=== PATIENT | male | born 1990 | race African-American/Black ===

== ENCOUNTER 2016-07-30 11:38 | Emergency (ER) | payer OTHER ==
[~2016-07-30 11:38] MED LIST: NO MEDICATIONS
== END 2016-07-30 12:17 | disposition home or self-care (01) ==
LOC: CFTX 11:38 → CED 11:38 → CFTX 12:12
DX: R21 Rash and other nonspecific skin eruption (principal); Z88.2 Allergy status to sulfonamides
CPT/HCPCS: 99282